=== PATIENT | male | born 1960 | race Caucasian/White ===

== ENCOUNTER 2020-10-12 14:54 | Emergency (ER) | payer BC ==
[2020-10-12] MEDS ORDERED: Tetracaine 0.5% PF 4 ML BOT ONE (15:00)
[2020-10-12] MEDS ORDERED: Fluorescein Opthalmic Strip ONE (15:12)
[2020-10-12] MEDS ORDERED: Ibuprofen 800 MG TAB ONE (15:37)
[2020-10-12] MEDS ORDERED: HYDROcodone/Acetaminophen 10/325 mg Tablet ONE (15:37)
== END 2020-10-12 15:35 | disposition home or self-care (01) ==
LOC: MADERS 14:54
DX: T15.01XA Foreign body in cornea, right eye, initial encounter (principal); I10 Essential (primary) hypertension; Z79.84 Long term (current) use of oral hypoglycemic drugs
CPT/HCPCS: 65222